=== PATIENT | female | born 1955 | race Caucasian/White ===

== ENCOUNTER 2023-07-03 08:48 | Inpatient (IN) | payer MEDICARE, MEDICAID ==
[~2023-07-03] VITALS: Ht 165.1 cm; Wt 87.2 kg
[2023-07-03 08:50] VITALS: BP_SYST 151; PULSE 55; RESP 19; TEMP 98.2; O2SAT 95
[2023-07-03] MEDS ORDERED: ASPIRIN 81 MG TAB.CHEW PO ONE (09:00)
[2023-07-03 09:24] LABS: BASOPHILS % (AUTO) 0.6 % (0.0-2.0); EOSINOPHILS # (AUTO) 0.6 K/uL (0.0-0.4); EOSINOPHILS % (AUTO) 7.8 % (0.0-4.0); HEMATOCRIT 40.7 % (36-48); HEMOGLOBIN 13.2 g/dL (12.0-16.0); LYMPHOCYTES # (AUTO) 2.6 K/uL (1.0-5.5); LYMPHOCYTES % (AUTO) 32.8 % (20.5-51.5); MEAN CORPUSCULAR HEMOGLOBIN 28 pg (27-31); MEAN CORPUSCULAR HGB CONC 32 % (32-36); MEAN CORPUSCULAR VOLUME 87 fL (79.0-98.0); MONOCYTES # (AUTO) 0.6 K/uL (0.0-1.0); MONOCYTES % (AUTO) 7.6 % (1.7-9.3); NEUTROPHILS # (AUTO) 4.1 K/uL (1.8-7.7); NEUTROPHILS % (AUTO) 51.2 % (40.0-70.0); PLATELET COUNT (AUTO) 290 K/uL (130-430); RED BLOOD CELL COUNT(AUTO) 4.66 MIL/uL (4.2-6.2); RED CELL DISTRIBUTION WIDTH 15.1 % (9.0-15.0); WHITE BLOOD COUNT (AUTO) 7.9 K/uL (4.8-10.8)
[2023-07-03] MEDS ORDERED: NITROGLYCERIN 1 INCH (GM) OINT. TP ONE (09:30)
[2023-07-03 09:37] LABS: ANION GAP 8 (5-15); CARBON DIOXIDE 28 mmol/L (23-29); CHLORIDE 106 mmol/L (98-107); CREATININE 0.69 mg/dL (0.55-1.30); GFR AFRICAN AMERICAN 108 mL/min (>90); GFR NON AFRICAN-AMERICAN 90 mL/min (>90); GLUCOSE 99 mg/dL (74-106); POTASSIUM 3.6 mmol/L (3.5-5.1); SODIUM SERUM 142 mmol/L (136-145); UREA NITROGEN, BLOOD 12 mg/dL (8-21)
[2023-07-03 09:44] LABS: ALANINE AMINOTRANSFERASE 26 U/L (12-78); ALBUMIN 2.8 g/dL (3.4-4.8); ASPARTATE AMINOTRANSFERASE 19 U/L (10-37); LIPASE 152 U/L (73-393); TOTAL BILIRUBIN 0.7 mg/dL (0.0-1.0); TOTAL PROTEIN, SERUM 6.7 g/dL (6.4-8.3)
[2023-07-03] MEDS ORDERED: DOCU-144 PO (10:50)
[2023-07-03] MEDS ORDERED: NITSL SL (10:50)
[2023-07-03] MEDS ORDERED: LOSA-413 PO (10:50)
[2023-07-03] MEDS ORDERED: METO50TA16 PO (10:50)
[2023-07-03] MEDS ORDERED: FAMO20TA8 PO (10:50)
[2023-07-03] MEDS ORDERED: ASA81 PO (10:50)
[2023-07-03] MEDS ORDERED: ACET325T53 PO (10:50)
[2023-07-03] MEDS ORDERED: HYDR-4037 PO (10:50)
[2023-07-03] MEDS ORDERED: AMIO200T66 PO (10:50)
[2023-07-03] MEDS ORDERED: MOM PO (10:50)
[2023-07-03] MEDS ORDERED: GABA-529 PO (10:50)
[2023-07-03] MEDS ORDERED: SERT25TA77 PO (10:50)
[2023-07-03] MEDS ORDERED: ONDA4TAB55 PO (10:50)
[2023-07-03] MEDS ORDERED: ACET-73 PO ×2 (10:50)
[2023-07-03] MEDS ORDERED: LIP40 PO (10:50)
[2023-07-03] MEDS ORDERED: BISA10SU61 RC (10:50)
[2023-07-03] MEDS ORDERED: SENN8.6T19 PO (10:50)
[2023-07-03] MEDS ORDERED: MULT-1117 PO (10:50)
[2023-07-03] MEDS ORDERED: LABE200T9 PO (10:50)
[2023-07-03] MEDS ORDERED: AMLO10TA88 PO (10:50)
[2023-07-03] MEDS ORDERED: ACETAMINOPHEN 500 MG TABLET PO ONE (12:45)
[2023-07-03] MEDS ORDERED: LORazepam 2 MG/ML VIAL IVP PRN (14:45)
[2023-07-03] MEDS ORDERED: MUPIROCIN 2% TOPICAL OINTMENT 22 GM NS PRN (14:45)
[2023-07-03] MEDS ORDERED: ONDANSETRON HCL 4 MG/2 ML VIAL IVP PRN (14:45)
[2023-07-03] MEDS ORDERED: ZOLPIDEM TARTRATE 5 MG TABLET PO PRN (14:45)
[2023-07-03] MEDS ORDERED: POTASSIUM CHLORIDE 20 MEQ TAB.PRT.SR PO PRN (14:45)
[2023-07-03] MEDS ORDERED: MORPHINE 2 MG/ML INJ. SYRINGE IVP PRN ×2 (14:45)
[2023-07-03] MEDS ORDERED: ACETAMINOPHEN 325 MG TABLET PO PRN (14:45)
[2023-07-03] MEDS ORDERED: MAGNESIUM SULFATE 50 ML IV PRN (14:45)
[2023-07-03] MEDS ORDERED: DOCUSATE SODIUM 100 MG CAPSULE PO PRN (14:45)
[2023-07-03 15:42] VITALS: BP_SYST 127; PULSE 52; RESP 18; TEMP 97.3; O2SAT 97
[2023-07-03 16:00] VITALS: BP_SYST 127; PULSE 52; RESP 16; TEMP 97.3; O2SAT 97
[2023-07-03 20:00] VITALS: BP_SYST 136; PULSE 58; RESP 18; TEMP 98; O2SAT 97
[2023-07-03] MEDS: METOPROLOL TARTRATE 50 MG TABLET PO SCH (20:52)
[2023-07-03] MEDS: GABAPENTIN 300 MG CAPSULE PO SCH (20:52)
[2023-07-03] MEDS: ATORVASTATIN 20 MG TABLET PO SCH ×3 (20:52→21:00)
[2023-07-04 01:42] VITALS: BP_SYST 141; PULSE 58; RESP 18; TEMP 98.6; O2SAT 97
[2023-07-04 05:26] LABS: BASOPHILS # (AUTO) 0.1 K/uL (0.0-0.2); EOSINOPHILS # (AUTO) 0.8 K/uL (0.0-0.4); EOSINOPHILS % (AUTO) 9.7 % (0.0-4.0); HEMATOCRIT 36.2 % (36-48); HEMOGLOBIN 11.6 g/dL (12.0-16.0); LYMPHOCYTES # (AUTO) 2.7 K/uL (1.0-5.5); LYMPHOCYTES % (AUTO) 31.3 % (20.5-51.5); MEAN CORPUSCULAR HEMOGLOBIN 28 pg (27-31); MEAN CORPUSCULAR HGB CONC 32 % (32-36); MEAN CORPUSCULAR VOLUME 88 fL (79.0-98.0); MONOCYTES # (AUTO) 0.7 K/uL (0.0-1.0); MONOCYTES % (AUTO) 8.3 % (1.7-9.3); NEUTROPHILS # (AUTO) 4.3 K/uL (1.8-7.7); NEUTROPHILS % (AUTO) 49.7 % (40.0-70.0); PLATELET COUNT (AUTO) 260 K/uL (130-430); RED BLOOD CELL COUNT(AUTO) 4.12 MIL/uL (4.2-6.2); RED CELL DISTRIBUTION WIDTH 15.1 % (9.0-15.0); WHITE BLOOD COUNT (AUTO) 8.6 K/uL (4.8-10.8)
[2023-07-04 06:40] LABS: CALCIUM 8.7 mg/dL (8.4-11.0); CREATININE 0.61 mg/dL (0.55-1.30); POTASSIUM 3.5 mmol/L (3.5-5.1)
[2023-07-04 08:30] VITALS: BP_SYST 157; PULSE 97; RESP 18; TEMP 98.1; O2SAT 97
[2023-07-04 09:30] VITALS: BP_SYST 151
[2023-07-04] MEDS: ASPIRIN 81 MG TAB.CHEW PO SCH (10:45)
[2023-07-04] MEDS: METOPROLOL TARTRATE 50 MG TABLET PO SCH ×2 (10:45→20:28)
[2023-07-04] MEDS: LOSARTAN POTASSIUM 50 MG TABLET (COZAAR) PO SCH (10:46)
[2023-07-04] MEDS: SERTRALINE HCL 50 MG TABLET PO SCH (10:46)
[2023-07-04] MEDS: AMIODARONE HCL 200 MG TABLET PO SCH (10:47)
[2023-07-04] MEDS: amLODIPine BESYLATE 10 MG TABLET PO SCH (10:47)
[2023-07-04 12:00] VITALS: BP_SYST 152; PULSE 59; RESP 18; TEMP 98.7; O2SAT 95
[2023-07-04 16:00] VITALS: BP_SYST 148; PULSE 61; RESP 18; TEMP 98.2; O2SAT 96
[2023-07-04] MEDS: ACETAMINOPHEN 325 MG TABLET PO PRN (16:23)
[2023-07-04 20:00] VITALS: BP_SYST 118; PULSE 56; RESP 18; TEMP 97; O2SAT 97
[2023-07-04] MEDS: GABAPENTIN 300 MG CAPSULE PO SCH (20:28)
[2023-07-04] MEDS: ATORVASTATIN 20 MG TABLET PO SCH (20:28)
[2023-07-05] VITALS (7 sets, daily range): BP systolic 114–130; PULSE 50–97; RESP 17–20; TEMP 96.9–98.2; O2SAT 96–99
[2023-07-05 06:15] LABS: BASOPHILS # (AUTO) 0.1 K/uL (0.0-0.2); BASOPHILS % (AUTO) 0.7 % (0.0-2.0); EOSINOPHILS # (AUTO) 0.6 K/uL (0.0-0.4); EOSINOPHILS % (AUTO) 7.5 % (0.0-4.0); HEMATOCRIT 37.8 % (36-48); HEMOGLOBIN 12.5 g/dL (12.0-16.0); LYMPHOCYTES # (AUTO) 2.4 K/uL (1.0-5.5); LYMPHOCYTES % (AUTO) 29.5 % (20.5-51.5); MEAN CORPUSCULAR HEMOGLOBIN 29 pg (27-31); MEAN CORPUSCULAR HGB CONC 33 % (32-36); MEAN CORPUSCULAR VOLUME 88 fL (79.0-98.0); MONOCYTES # (AUTO) 0.7 K/uL (0.0-1.0); MONOCYTES % (AUTO) 8.4 % (1.7-9.3); NEUTROPHILS # (AUTO) 4.4 K/uL (1.8-7.7); NEUTROPHILS % (AUTO) 53.9 % (40.0-70.0); PLATELET COUNT (AUTO) 285 K/uL (130-430); RED BLOOD CELL COUNT(AUTO) 4.31 MIL/uL (4.2-6.2); WHITE BLOOD COUNT (AUTO) 8.1 K/uL (4.8-10.8)
[2023-07-05 06:19] LABS: CALCIUM 8.8 mg/dL (8.4-11.0); CREATININE 0.66 mg/dL (0.55-1.30); POTASSIUM 3.8 mmol/L (3.5-5.1)
[2023-07-05] MEDS: ACETAMINOPHEN 325 MG TABLET PO PRN (08:07)
[2023-07-05] MEDS: AMIODARONE HCL 200 MG TABLET PO SCH (08:49)
[2023-07-05] MEDS: METOPROLOL TARTRATE 50 MG TABLET PO SCH (08:49)
[2023-07-05] MEDS: ASPIRIN 81 MG TAB.CHEW PO SCH (08:49)
[2023-07-05] MEDS: amLODIPine BESYLATE 10 MG TABLET PO SCH (08:50)
[2023-07-05] MEDS: LOSARTAN POTASSIUM 50 MG TABLET (COZAAR) PO SCH (08:50)
[2023-07-05] MEDS: SERTRALINE HCL 50 MG TABLET PO SCH (08:50)
[2023-07-05] MEDS ORDERED: APIXABAN 2.5 MG TABLET PO ONE (10:00)
[2023-07-06] VITALS: O2SAT 95
[2023-07-06] MEDS: GABAPENTIN 300 MG CAPSULE PO SCH (00:04)
[2023-07-06] MEDS: ATORVASTATIN 20 MG TABLET PO SCH (00:04)
[2023-07-06] MEDS: METOPROLOL TARTRATE 50 MG TABLET PO SCH ×2 (00:05→08:30)
[2023-07-06] MEDS: APIXABAN 2.5 MG TABLET PO SCH ×2 (00:06→08:33)
[2023-07-06 00:56] VITALS: BP_SYST 135; PULSE 60; RESP 18; TEMP 98.4; O2SAT 95
[2023-07-06 06:10] LABS: BASOPHILS # (AUTO) 0.1 K/uL (0.0-0.2); BASOPHILS % (AUTO) 0.8 % (0.0-2.0); EOSINOPHILS # (AUTO) 0.6 K/uL (0.0-0.4); EOSINOPHILS % (AUTO) 7.4 % (0.0-4.0); HEMATOCRIT 39.3 % (36-48); LYMPHOCYTES # (AUTO) 2.7 K/uL (1.0-5.5); MEAN CORPUSCULAR HEMOGLOBIN 29 pg (27-31); MEAN CORPUSCULAR HGB CONC 33 % (32-36); MEAN CORPUSCULAR VOLUME 87 fL (79.0-98.0); MONOCYTES # (AUTO) 0.8 K/uL (0.0-1.0); MONOCYTES % (AUTO) 8.9 % (1.7-9.3); NEUTROPHILS # (AUTO) 4.3 K/uL (1.8-7.7); NEUTROPHILS % (AUTO) 50.9 % (40.0-70.0); PLATELET COUNT (AUTO) 265 K/uL (130-430); RED BLOOD CELL COUNT(AUTO) 4.54 MIL/uL (4.2-6.2); WHITE BLOOD COUNT (AUTO) 8.5 K/uL (4.8-10.8)
[2023-07-06 06:22] LABS: CALCIUM 8.8 mg/dL (8.4-11.0); CREATININE 0.58 mg/dL (0.55-1.30); POTASSIUM 3.5 mmol/L (3.5-5.1)
[2023-07-06 08:18] VITALS: BP_SYST 137; PULSE 54; RESP 18; TEMP 97.6; O2SAT 95
[2023-07-06] MEDS: ASPIRIN 81 MG TAB.CHEW PO SCH (08:29)
[2023-07-06 08:30] VITALS: O2SAT 95
[2023-07-06] MEDS: LOSARTAN POTASSIUM 50 MG TABLET (COZAAR) PO SCH (08:30)
[2023-07-06] MEDS: amLODIPine BESYLATE 10 MG TABLET PO SCH (08:31)
[2023-07-06] MEDS: AMIODARONE HCL 200 MG TABLET PO SCH (08:32)
[2023-07-06] MEDS: SERTRALINE HCL 50 MG TABLET PO SCH (08:32)
[2023-07-06] MEDS ORDERED: APIX2.5T PO (11:37)
[2023-07-06 12:00] VITALS: BP_SYST 130; PULSE 62; RESP 18; TEMP 97.5; O2SAT 95
[2023-07-06 15:58] VITALS: BP_SYST 131; PULSE 52; RESP 18; TEMP 97.6; O2SAT 95
== END 2023-07-06 18:30 | DRG 65 ==
LOC: SED 08:48 → STU 14:16
PROVIDERS: ADMIT General Practice; ATTEND General Practice
DX: I63.9 Cerebral infarction, unspecified (principal); G81.94 Hemiplegia, unspecified affecting left nondominant side; F32.A Depression, unspecified; I48.0 Paroxysmal atrial fibrillation; I10 Essential (primary) hypertension; E78.5 Hyperlipidemia, unspecified; Z20.822 Contact with and (suspected) exposure to COVID-19; I48.91 Unspecified atrial fibrillation; Z79.82 Long term (current) use of aspirin; Z79.899 Other long term (current) drug therapy; Z86.711 Personal history of pulmonary embolism; Z86.718 Personal history of other venous thrombosis and embolism; R07.89 Other chest pain
CPT/HCPCS: 36415; 70450-TC; 71045; 76376; 80048; 80053; 82962; 83037; 83690; 83735; 83880; 84443; 84484; 85025; 87081; 93005; 93306; 93970; 99285; G0378; J7030